=== PATIENT | female | born 1945 | race Caucasian/White ===

== ENCOUNTER 2018-02-05 13:15 | Inpatient (IN) | payer MEDICAID ==
[2018-02-05] MEDS: KETOROLAC 15 MG INJ IV (14:03)
[2018-02-05] MEDS: BELLADONNA/PHENOBARBITAL TAB PO (14:03)
[2018-02-05] MEDS: FAMOTIDINE 20 MG TAB PO (14:03)
[2018-02-05] MEDS: LIDOCAINE/MYLANTA 40 ML BTL PO (14:03)
[2018-02-05] MEDS: ONDANSETRON 4 MG INJ IV (14:03)
[2018-02-05] MEDS: SOD CHLORIDE 0.9% 500 ML IV (14:04)
[2018-02-05 14:06] LABS: ADD MAN DIFF? NO
[2018-02-05 14:10] LABS: BASOPHILS % 0.4 % (0.0-2.0); EOSINOPHILS % 0.6 % (0.0-7.0); HEMATOCRIT 36.4 % (37.0-47.0); HEMOGLOBIN 12.2 g/dl (12.0-16.0); LYMPHOCYTES # 1.6 10^3/ul (0.8-2.9); MEAN CORPUSCULAR HEMOGLOBIN 30.7 pg (29.0-33.0); MEAN CORPUSCULAR HGB CONC 33.5 g/dl (32.0-37.0); MEAN CORPUSCULAR VOLUME 91.5 fl (82.0-101.0); MONOCYTE # 0.2 10^3/ul (0.3-0.9); MONOCYTES % 3.9 % (0.0-11.0); NEUTROPHIL # 3.5 10^3/ul (1.6-7.5); NEUTROPHILS % 64.5 % (39.0-77.0); PLATELET COUNT 307 10^3/UL (140-415); RED BLOOD COUNT 3.98 10^6/ul (4.20-5.40); RED CELL DISTRIBUTION WIDTH 13.9 % (11.5-14.5)
[2018-02-05 14:10] LABS: WHITE BLOOD COUNT 5.4 10^3/ul (4.8-10.8)
[2018-02-05 14:27] LABS: ALANINE AMINOTRANSFERASE 26 IU/L (13-69); ALBUMIN 4.6 g/dl (3.3-4.9); ALBUMIN/GLOBULIN RATIO 1.31; ALKALINE PHOSPHATASE 82 IU/L (42-121); ANION GAP 19 (8-16); ASPARTATE AMINO TRANSFERASE 17 IU/L (15-46); BLOOD UREA NITROGEN 22 mg/dl (7-20); CALCIUM 9.1 mg/dl (8.4-10.2); CARBON DIOXIDE 22 mmol/L (21-31); CHLORIDE 102 mmol/L (97-110); CREATININE 0.66 mg/dl (0.44-1.00); GLUCOSE 326 mg/dl (70-220); LIPASE 13 U/L (23-300); POTASSIUM 4.2 mmol/L (3.5-5.1); SODIUM 139 mmol/L (135-144); TOTAL PROTEIN 8.1 g/dl (6.1-8.1)
[2018-02-05 14:38] LABS: TROPONIN-I 0.048 ng/ml (0.00-0.12)
[2018-02-05 15:16] LABS: ADD UMIC YES; UR ASCORBIC ACID NEGATIVE (NEGATIVE); UR BACTERIA FEW /HPF (NONE SEEN); UR BILIRUBIN (Dip) NEGATIVE (NEGATIVE); UR BLOOD (Dip) NEGATIVE (NEGATIVE); UR CLARITY SLIGHTLY CLOUDY (CLEAR); UR COLOR YELLOW (YELLOW); UR GLUCOSE (Dip) 3+ mg/dL (NEGATIVE); UR KETONES (Dip) TRACE mg/dL (NEGATIVE); UR LEUKOCYTE ESTERASE (Dip) 3+ Leu/ul (NEGATIVE); UR MUCUS FEW /HPF (NONE SEEN); UR NITRITE (Dip) NEGATIVE (NEGATIVE); UR RBC 4 /HPF (0-5); UR SPECIFIC GRAVITY (Dip) 1.021 (1.003-1.030); UR SQUAMOUS EPITHELIAL CELL FEW /HPF (FEW); UR TOTAL PROTEIN (Dip) 1+ mg/dl (NEGATIVE); UR UROBILINOGEN (Dip) 1+ mg/dL (NEGATIVE); UR WBC 9 /HPF (0-5)
[2018-02-05] MEDS: CEPHALEXIN 500 MG CAP PO (16:27)
[2018-02-05] MEDS: ASPIRIN 81 MG TAB PO (16:28)
[2018-02-05] MEDS ORDERED: HYDROCODONE/APAP (5/325) TAB PO (16:30)
[2018-02-05] MEDS ORDERED: NACL 0.9% 3 ML SYG IV (16:30)
[2018-02-05] MEDS ORDERED: morphine 2 MG INJ IV (16:30)
[2018-02-05] MEDS ORDERED: ONDANSETRON 4 MG INJ IV (16:30)
[2018-02-05] MEDS ORDERED: DEXTROSE 50% 50 ML SYRINGE IV ×2 (17:00)
[2018-02-05] MEDS ORDERED: GLUCOSE GEL 15 GRAM TUBE PO ×2 (17:00)
[2018-02-05] MEDS ORDERED: GABAPENTIN 300 MG CAP PO (17:00)
[2018-02-05] MEDS ORDERED: GLUCOSE GEL 15 GRAM TUBE BUCCAL (17:00)
[2018-02-05] MEDS ORDERED: GLUCAGON 1 MG INJ IM (17:00)
[2018-02-05 17:39] LABS: B-TYPE NATRIURETIC PEPTIDE 117 PG/ML (0-125)
[2018-02-05 17:41] LABS: HEMOGLOBIN A1C 8.2 % (0-5.9)
[2018-02-05 17:47] LABS: FREE T4 (FREE THYROXINE) 1.61 ng/dl (0.78-2.44)
[2018-02-05] MEDS: INSULIN ASPART [NOVOLOG] 3 ML PEN SC ×3 (18:03→21:00)
[2018-02-05 18:50] LABS: CREATINE KINASE 76 IU/L (23-200)
[2018-02-05 19:01] LABS: CK INDEX 3.2; CK-MB 2.44 ng/ml (0.0-2.4)
[2018-02-05 19:03] LABS: TROPONIN-I 0.353 ng/ml (0.000-0.120)
[2018-02-05] MEDS ORDERED: ATORVASTATIN 20 MG TAB PO (21:00)
[2018-02-05] MEDS: INSULIN GLARGINE [LANtus] 3 ML PEN SC (21:57)
[2018-02-05] MEDS: METOPROLOL 25 MG TAB PO (21:58)
[2018-02-05] MEDS: ACETAMINOPHEN 325 MG TAB PO (23:11)
[2018-02-05] MEDS: ENOXAPARIN 100 MG/ML SYG SC (23:11)
[2018-02-05] MEDS: ATORVASTATIN 80 MG TAB PO (23:11)
[2018-02-06 01:37] LABS: CREATINE KINASE 130 IU/L (23-200)
[2018-02-06 01:50] LABS: CK INDEX 4.9; CK-MB 6.41 ng/ml (0.0-2.4)
[2018-02-06 06:42] LABS: ADD MAN DIFF? NO
[2018-02-06 06:46] LABS: WHITE BLOOD COUNT 5.4 10^3/ul (4.8-10.8)
[2018-02-06 06:46] LABS: BASOPHILS % 0.2 % (0.0-2.0); EOSINOPHILS % 0.4 % (0.0-7.0); HEMATOCRIT 36.2 % (37.0-47.0); HEMOGLOBIN 11.9 g/dl (12.0-16.0); LYMPHOCYTES # 1.8 10^3/ul (0.8-2.9); LYMPHOCYTES % 33.9 % (15.0-51.0); MEAN CORPUSCULAR HEMOGLOBIN 30.4 pg (29.0-33.0); MEAN CORPUSCULAR HGB CONC 32.9 g/dl (32.0-37.0); MEAN CORPUSCULAR VOLUME 92.3 fl (82.0-101.0); MEAN PLATELET VOLUME 9.8 fl (7.4-10.4); MONOCYTE # 0.3 10^3/ul (0.3-0.9); MONOCYTES % 4.8 % (0.0-11.0); NEUTROPHIL # 3.2 10^3/ul (1.6-7.5); NEUTROPHILS % 60.1 % (39.0-77.0); PLATELET COUNT 276 10^3/UL (140-415); RED BLOOD COUNT 3.92 10^6/ul (4.20-5.40); RED CELL DISTRIBUTION WIDTH 14.3 % (11.5-14.5)
[2018-02-06 07:04] LABS: CHOLESTEROL 179 mg/dl (100-200)
[2018-02-06 07:04] LABS: CHOL/HDL RATIO 5.2 RATIO; HDL CHOLESTEROL 34 mg/dl (33-92); LDL CHOLESTEROL,CALCULATED 84 mg/dl; TRIGLYCERIDES 307 mg/dl (0-149)
[2018-02-06 07:13] LABS: PHOSPHORUS 4.5 mg/dl (2.5-4.9)
[2018-02-06 07:13] LABS: CREATINE KINASE 159 IU/L (23-200)
[2018-02-06 07:23] LABS: INR 1.01; PROTIME 13.4 Sec (11.9-14.9)
[2018-02-06 07:24] LABS: ALANINE AMINOTRANSFERASE 27 IU/L (13-69); ALBUMIN 3.7 g/dl (3.3-4.9); ALBUMIN/GLOBULIN RATIO 1.32; ALKALINE PHOSPHATASE 71 IU/L (42-121); ANION GAP 16 (8-16); ASPARTATE AMINO TRANSFERASE 23 IU/L (15-46); BILIRUBIN,INDIRECT 0.5 mg/dl (0-1.1); BILIRUBIN,TOTAL 0.5 mg/dl (0.2-1.3); BLOOD UREA NITROGEN 26 mg/dl (7-20); CARBON DIOXIDE 25 mmol/L (21-31); CHLORIDE 109 mmol/L (97-110); CREATININE 0.76 mg/dl (0.44-1.00); GLUCOSE 270 mg/dl (70-220); PARTIAL THROMBOPLASTIN TIME 28.6 Sec (25.0-35.0); POTASSIUM 4.6 mmol/L (3.5-5.1); SODIUM 145 mmol/L (135-144); TOTAL PROTEIN 6.5 g/dl (6.1-8.1)
[2018-02-06 07:26] LABS: CK INDEX 5.8; CK-MB 9.23 ng/ml (0.0-2.4)
[2018-02-06] MEDS: INSULIN ASPART [NOVOLOG] 3 ML PEN SC ×7 (07:35→21:00)
[2018-02-06] MEDS: ASPIRIN (EC) 81 MG TAB PO (08:14)
[2018-02-06] MEDS: METOPROLOL 25 MG TAB PO ×2 (08:15→21:00)
[2018-02-06] MEDS ORDERED: ENOXAPARIN 40 MG/0.4 ML SYG SC (09:00)
[2018-02-06] MEDS: CLOPIDOGREL 75 MG TAB PO (09:25)
[2018-02-06] MEDS ORDERED: FENTAnyl 50 MCG/ML VIAL (15:14)
[2018-02-06] MEDS ORDERED: MIDAZOLAM 1 MG/ML 2 ML INJ (15:14)
[2018-02-06] MEDS ORDERED: VERAPAMIL 5 MG INJ (15:14)
[2018-02-06] MEDS ORDERED: LIDOCAINE 1% (MDV) 20 ML INJ (15:15)
[2018-02-06] MEDS ORDERED: IODIXANOL LOCM 100 ML BTL ×3 (15:15→17:38)
[2018-02-06] MEDS ORDERED: HEPARIN 1000 UNITS/ML 10 ML INJ (15:15)
[2018-02-06] MEDS ORDERED: BIVALIRUDIN 250MG /NS 50 ML 50 ML IVPB ×2 (16:41→16:59)
[2018-02-06] MEDS ORDERED: IOHEXOL 350MG/ML 50 ML BTL (16:41)
[2018-02-06] MEDS ORDERED: CLOPIDOGREL 300 MG TAB (17:38)
[2018-02-06] MEDS: INSULIN GLARGINE [LANtus] 3 ML PEN SC (20:18)
[2018-02-06] MEDS: ATORVASTATIN 80 MG TAB PO (20:59)
[2018-02-06] MEDS: SOD CHLORIDE 0.9% 1,000 ML IV (21:29)
[2018-02-07 06:21] LABS: ADD MAN DIFF? NO
[2018-02-07 06:25] LABS: BASOPHILS % 0.4 % (0.0-2.0); EOSINOPHILS % 0.9 % (0.0-7.0); HEMATOCRIT 31.9 % (37.0-47.0); HEMOGLOBIN 10.5 g/dl (12.0-16.0); LYMPHOCYTES # 1.4 10^3/ul (0.8-2.9); LYMPHOCYTES % 30.8 % (15.0-51.0); MEAN CORPUSCULAR HEMOGLOBIN 30.9 pg (29.0-33.0); MEAN CORPUSCULAR HGB CONC 32.9 g/dl (32.0-37.0); MEAN CORPUSCULAR VOLUME 93.8 fl (82.0-101.0); MEAN PLATELET VOLUME 10.1 fl (7.4-10.4); MONOCYTE # 0.3 10^3/ul (0.3-0.9); MONOCYTES % 5.8 % (0.0-11.0); NEUTROPHIL # 2.8 10^3/ul (1.6-7.5); NEUTROPHILS % 61.7 % (39.0-77.0); PLATELET COUNT 216 10^3/UL (140-415); RED CELL DISTRIBUTION WIDTH 14.3 % (11.5-14.5)
[2018-02-07 06:25] LABS: WHITE BLOOD COUNT 4.5 10^3/ul (4.8-10.8)
[2018-02-07 06:56] LABS: ANION GAP 12 (8-16); BLOOD UREA NITROGEN 20 mg/dl (7-20); CALCIUM 8.4 mg/dl (8.4-10.2); CARBON DIOXIDE 26 mmol/L (21-31); CHLORIDE 109 mmol/L (97-110); CREATININE 0.69 mg/dl (0.44-1.00); GLUCOSE 162 mg/dl (70-220); POTASSIUM 4.3 mmol/L (3.5-5.1); SODIUM 143 mmol/L (135-144)
[2018-02-07] MEDS: INSULIN ASPART [NOVOLOG] 3 ML PEN SC ×4 (08:32→11:36)
[2018-02-07] MEDS: METOPROLOL 25 MG TAB PO (08:38)
[2018-02-07] MEDS: ASPIRIN (EC) 81 MG TAB PO (08:38)
[2018-02-07] MEDS: CLOPIDOGREL 75 MG TAB PO (08:38)
== END 2018-02-07 15:40 | disposition home or self-care (01) | DRG 247 ==
LOC: E/R 13:15 → MS3 15:58 → ICU 02-06 18:10
PROC: 027035Z Dilation of Coronary Artery, One Artery with Two Drug-eluting Intraluminal Devices, Percutaneous Approach (ICD-10-PCS; principal; 2018-02-06 15:00)
PROC: 4A023N7 Measurement of Cardiac Sampling and Pressure, Left Heart, Percutaneous Approach (ICD-10-PCS; 2018-02-06 15:00)
PROC: B211YZZ Fluoroscopy of Multiple Coronary Arteries using Other Contrast (ICD-10-PCS; 2018-02-06 15:00)
PROC: B240ZZ3 Ultrasonography of Single Coronary Artery, Intravascular (ICD-10-PCS; 2018-02-06 15:00)
DX: I21.4 Non-ST elevation (NSTEMI) myocardial infarction (principal); N39.0 Urinary tract infection, site not specified; I25.10 Atherosclerotic heart disease of native coronary artery without angina pectoris; E11.9 Type 2 diabetes mellitus without complications; I10 Essential (primary) hypertension; E66.01 Morbid (severe) obesity due to excess calories; Z68.39 Body mass index [BMI] 39.0-39.9, adult; E78.00 Pure hypercholesterolemia, unspecified; I25.2 Old myocardial infarction; Z86.73 Personal history of transient ischemic attack (TIA), and cerebral infarction without residual deficits; Z79.82 Long term (current) use of aspirin; Z79.84 Long term (current) use of oral hypoglycemic drugs
CPT/HCPCS: 36415; 71045; 80048; 80053; 80061; 81001; 82550; 82553; 82962; 83036; 83690; 83735; 83880; 84100; 84439; 84443; 84484; 85025; 85610; 85730; 87081; 87086; 93005; 93306; 93458; 96372; 96374; 96375; 99285-25